=== PATIENT | male | born 1955 | race Caucasian/White ===

== ENCOUNTER → 2016-09-25 | Outpatient (CLI) | payer BC ==
--- NOTE | 2016-09-25 17:06 | CT ---
EXAMINATION TYPE: CT ChestAbdPelvis w con DATE OF EXAM: 09/25/2016 INDICATION: Patient has no complaints at time of study. Follow up study for history of lung CA. COMPARISON: 09/21/2015 CT DLP: 1126.7 mGycm CONTRAST: Performed with Oral Contrast and with IV Contrast, patient injected with 100 mL of Omnipaque 300. TECHNIQUE: Axial images at 5 mm thick sections. Reconstructed images in the coronal plane. Delayed images through the kidneys. FINDINGS: CT CHEST: Moderate size hiatal hernia is present. Portion of the thyroid visualized is normal. No suspicious lung nodules or focal infiltrates are present. No enlarged mediastinal or hilar adenopathy is evident. Surgical clips are adjacent to the aortopulmo katelynn window. Coronary artery calcification is present. The ascending aorta diameter at the level of the main pulmonary artery is 4.2 cm. The main pulmonary artery diameter at the bifurcation is 2.[address] ABDOMEN: Liver: Couple of stable punctate hypodensities are within the superior liver. Spleen: Normal Pancreas: Normal Adrenal glands: The adrenal glands are normal. Gallbladder: Gallstones at the neck of the gallbladder. Kidneys: No masses are evident. No hydronephrosis is present. No cysts are present. Delayed images were obtained through the kidneys, which remain unremarkable. Aorta: Vascular calcification is within the aorta. Inferior vena cava: Normal. CT PELVIS: Loops of bowel within the abdomen and pelvis are normal. There are loops of bowel which are incom pletely distended or lack oral contrast limiting their evaluation. Appendix: Normal as visualized. Urinary bladder: Normal. Genitourinary structures: Prostate appears slightly prominent. Osseous structures: No suspicious lytic or sclerotic lesions. IMPRESSIONS: 1. No suspicious changes for recurrent or metastatic lung cancer. #2 gallstone within the gallbladder .
== END | disposition home or self-care (01) ==
LOC: RADCTMAIN 08:10
PROVIDERS: ATTEND Internal Medicine Hematology & Oncology
DX: K80.20 Calculus of gallbladder without cholecystitis without obstruction (principal); C7A.090 Malignant carcinoid tumor of the bronchus and lung
CPT/HCPCS: 71260; 74177; 36415; Q9967

== ENCOUNTER → 2017-09-17 | Outpatient (CLI) | payer BC ==
--- NOTE | 2017-09-17 09:32 | CT ---
EXAMINATION TYPE: CT ChestAbdPelvis w con DATE OF EXAM: 09/17/2017 COMPARISON: 09/25/2016 and 09/21/2015 HISTORY: Follow up to lung CA CT DLP: 895.4 mGycm. Automated Exposure Control for Dose Reduction was Utilized. CONTRAST: CT scan of the thorax, abdomen and pelvis is performed with IV Contrast, patient injected with 100 mL of Isovue 300. FINDINGS: LUNGS: Partial lobectomy as seen on the left with mediastinal clips and pleural parenchymal scarring along the lingula and anterior segments of the left lower lobe. Focal pleural thickening appears less conspicuous than on the prior exam measuring 3.6 mm on series 4 image 30. The lungs are grossly jina r, there is no concerning parenchymal mass or nodule identified. Minimal right basilar subsegmental atelectasis is present. Medial pleural parenchymal scarring is similar to the prior within the right lower lobe. There is no pleural effusion or pneumothorax seen. The tracheobronchial tree is patent. MEDIASTINUM: Incidental note is made of a bovine aortic arch, normal variant. There are no greater th an 1 cm hilar or mediastinal lymph nodes. No pericardial effusion is seen. Ascending thoracic aort a and main pulmonary artery are within normal limits. Moderate coronary artery calcifications are aga in noted. OTHER: Moderate hiatal hernia is again noted within the lower thorax. LIVER/GB: Subcentimeter hypoattenuated lesions within the most cranial aspect of the liver are stable in comparison the prior and likely represent cysts. No new hepatic lesion is seen. No cholelithiasis . PANCREAS: No significant abnormality is seen. No ductal dilatation. SPLEEN: No significant abnormality is seen. No splenomegaly. ADRENALS: No significant abnormality is seen. No thickening or nodularity. KIDNEYS: Kidneys enhance and excrete symmetrically without focal lesion or hydronephrosis. BOWEL: No significant abnormality is seen. No bowel dilation. Few scattered sigmoid diverticula are present without pericolonic fat stranding. GENITAL ORGANS: No gross abnormality seen. LYMPH NODES: No greater than 1cm abdominal or pelvic lymph nodes are appreciated. OSSEOUS STRUCTURES: Mild multilevel degenerative changes of the spine. No suspicious osseous lesion. IMPRESSION: No evidence of metastatic disease. No new adenopathy within the chest, abdomen, or pelvis . Stable postoperative changes of the left hemithorax and less conspicuous postsurgical pleural thick ening.
== END | disposition home or self-care (01) ==
LOC: RADCTMAIN 07:18
PROVIDERS: ATTEND Internal Medicine Hematology & Oncology
DX: C7A.090 Malignant carcinoid tumor of the bronchus and lung (principal); J92.9 Pleural plaque without asbestos; Z98.890 Other specified postprocedural states
CPT/HCPCS: 71260; 74177; Q9967

== ENCOUNTER → 2018-11-25 | Outpatient (CLI) | payer MEDICARE, BC ==
--- NOTE | 2018-11-25 13:53 | CT ---
EXAMINATION TYPE: CT ChestAbdPelvis w con DATE OF EXAM: 11/25/2018 COMPARISON: 09/17/2017 HISTORY: Lung cancer follow up. CT DLP: 1014.2 mGycm Automated exposure control for dose reduction was used. CONTRAST: CT scan of the chest, abdomen and pelvis is performed with Oral Contrast and with IV Contrast, patien t injected with 100 mL of Isovue 300. FINDINGS: LUNGS: Remonstration partial lobectomy on the left with mediastinal clips and pleural and parenchymal scarring along the lingula and anterior segment of the left lower lobe previously described area of pleural thickening appears similar. The lungs are grossly clear, there is no concerning parenchymal m ass or nodule identified. There is no pleural effusion or pneumothorax seen. The tracheobronchial tree is patent. MEDIASTINUM: There are no greater than 1 cm hilar or mediastinal lymph nodes. No pericardial effusi on is seen. OTHER: Redemonstration of moderate hiatal hernia. LIVER/GB: Subcentimeter hypoattenuating lesions are stable when compared to prior and likely represen t cysts. No new hepatic lesion identified. PANCREAS: No significant abnormality is seen. SPLEEN: No significant abnormality is seen. ADRENALS: No significant abnormality is seen. KIDNEYS: No significant abnormality is seen. BOWEL: No significant abnormality is seen. REPRODUCTIVE ORGANS: No gross abnormality seen. LYMPH NODES: No greater than 1 cm abdominal or pelvic lymph nodes are appreciated. OSSEOUS STRUCTURES: Multilevel degenerative changes of the spine no suspicious osseous lesion. IMPRESSION: No evidence of recurrent or metastatic disease within the chest, abdomen and pelvis. Onelia anders postoperative changes of the left lung partial lobectomy.
== END ==
LOC: RADCTMAIN 10:02
PROVIDERS: ATTEND Internal Medicine Hematology & Oncology
DX: C7A.090 Malignant carcinoid tumor of the bronchus and lung (principal); Z98.890 Other specified postprocedural states
CPT/HCPCS: 82565; 84520; 71260; 74177; 36415; Q9967

== ENCOUNTER → 2020-02-08 | Outpatient (CLI) | payer MEDICARE, BC ==
--- NOTE | 2020-02-08 15:04 | CT ---
EXAMINATION TYPE: CT shoulder LT wo con DATE OF EXAM: 02/08/2020 COMPARISON: None HISTORY: Left shoulder pain after fall x1 week ago. CT DLP: 389.7 mGycm Automated exposure control for dose reduction was used. Helical imaging through the shoulder, reconst ructions performed in all 3 planes FINDINGS: Comminuted impacted fracture of the proximal left humerus is noted, there is no evident dislocation. Acromioclavicular joint arthropathy changes present. Left lung unremarkable as seen. There are reza ry artery calcifications. Degenerative disc changes are present in the thoracic spine. IMPRESSION: COMMINUTED LEFT PROXIMAL HUMERAL FRACTURE
== END | disposition home or self-care (01) ==
LOC: RADCTMAIN 12:06
PROVIDERS: ATTEND Orthopaedic Surgery
DX: S42.202A Unspecified fracture of upper end of left humerus, initial encounter for closed fracture (principal)

== ENCOUNTER 2022-01-26 08:46 | Emergency (ER) | payer BC, MEDICARE ==
[2022-01-26] MEDS ORDERED: HYDROmorphone 1 MG/ML 1 ML SYRINGE IM STA (09:38)
--- NOTE | 2022-01-26 09:42 | ED ---
General Adult HPI - General Chief complaint: Back Pain/Injury Stated complaint: back & hip pain Time Seen by Provider: 01/26/22 09:24 Source: patient, RN notes reviewed Mode of arrival: ambulatory Limitations: no limitations - History of Present Illness Initial comments: Patient is a pleasant 66-year-old male presenting to the emergency department with concerns with low back pain. Patient does have history of disc problem and similar back problems previously. Onset of symptoms was a couple of days ago. Patient has discomfort left lower back that does radiate towards left leg. No new weakness. No loss of sensation. No tendons retention of bowel or bladder. - Related Data Home Medications Medication Instructions Recorded Confirmed Cyanocobalamin [Vitamin B-12] 2,500 mcg PO DAILY 10/29/13 01/03/15 Sertraline HCl [Zoloft] 50 mg PO DAILY 10/29/13 01/03/15 Simvastatin [Zocor] 20 mg PO HS 10/29/13 01/03/15 Magnesium Oxide [Mag-Ox] 250 mg PO DAILY 01/02/15 01/03/15 Ranitidine HCl 150 mg PO BID 01/02/15 01/03/15 Tamsulosin [Flomax] 0.4 mg PO DAILY 01/02/15 01/03/15 Previous Rx's Medication Instructions Recorded Cyclobenzaprine [Flexeril] 10 mg PO TID PRN #12 tablet 01/26/22 predniSONE 50 mg PO DAILY #5 tab 01/26/22 Allergies Allergy/AdvReac Type Severity Reaction Status Date / Time venom-honey bee Allergy Severe Anaphylaxis Verified 01/26/22 08:47 [bee venom (honey bee)] metoprolol tartrate AdvReac Unknown Verified 01/26/22 08:47 [From Lopressor] Review of Systems ROS Statement: Those systems with pertinent positive or pertinent negative responses have been documented in the HPI. ROS Other: All systems not noted in ROS Statement are negative. Constitutional: Denies: fever Eyes: Denies: eye pain ENT: Denies: ear pain Respiratory: Denies: cough Cardiovascular: Denies: chest pain Endocrine: Denies: fatigue Gastrointestinal: Denies: abdominal pain Genitourinary: Denies: dysuria Musculoskeletal: Reports: as per HPI, back pain Skin: Denies: rash Neurological: Denies: weakness, numbness Past Medical History Past Medical History: Cancer, GERD/Reflux, Hyperlipidemia, Rheumatoid Arthritis (RA), Supraventricular Tachycardia (SVT) Additional Past Medical History / Comment(s): DX LUNG CA 09/2013. varicose veins, lung mass, psoriatic arthritis History of Any Multi-Drug Resistant Organisms: None Reported Past Surgical History: Hernia Repair Additional Past Surgical History / Comment(s): deviated septum,cysts removed LT breast,LT HAND,rt upper leg. REMOVAL GANGLION CYST RT HAND. COLONOSCOPY Past Anesthesia/Blood Transfusion Reactions: No Reported Reaction Past Psychological History: Depression Past Alcohol Use History: Occasional Past Drug Use History: None Reported - Past Family History Father Family Medical History: Cancer Mother Family Medical History: Cancer General Exam Limitations: no limitations General appearance: alert, in no apparent distress Head exam: Present: normocephalic Eye exam: Present: normal appearance Neck exam: Present: normal inspection Respiratory exam: Present: normal lung sounds bilaterally Cardiovascular Exam: Present: regular rate, normal rhythm GI/Abdominal exam: Present: soft. Absent: tenderness, pulsatile mass Extremities exam: Present: normal inspection Back exam: Present: tenderness (Minimal tenderness left lower lumbar) Neurological exam: Present: alert. Absent: motor sensory deficit Expanded Sensory exam: Lower Extremity Light Touch: Normal Motor strength exam: LLE: 5 Psychiatric exam: Present: normal affect, normal mood Skin exam: Present: normal color Course Vital Signs 01/26/22 08:47 Temperature 97.8 F Pulse Rate 93 Respiratory 16 Rate Blood Pressure 154/84 O2 Sat by Pulse 93 L Oximetry Disposition Clinical Impression: Low back pain Disposition: HOME SELF-CARE Condition: Stable Instructions (If sedation given, give patient instructions): Acute Low Back Pain (ED) Additional Instructions: Prescription sent to pharmacy. Please do follow-up with your primary care physician in the next day or 2 for recheck. Return for increased pain, weakness, loss of control of bowel or bladder, worsening symptoms or any other concerns. Prescriptions: Cyclobenzaprine [Flexeril] 10 mg PO TID PRN #12 tablet PRN Reason: Pain predniSONE 50 mg PO DAILY #5 tab Is patient prescribed a controlled substance at d/c from ED?: No Referrals: Brian Fuchs MD [Primary Care Provider] - 1-2 days Time of Disposition: 09:42
[2022-01-26 10:27] VITALS: BP 146/95; PULSE 91; RESP 19; TEMP 97.6
== END 2022-01-26 10:27 | disposition home or self-care (01) ==
LOC: EC 08:46
DX: M54.50 Low back pain, unspecified (principal); K21.9 Gastro-esophageal reflux disease without esophagitis; E78.5 Hyperlipidemia, unspecified; C80.1 Malignant (primary) neoplasm, unspecified; F32.A Depression, unspecified; Z79.899 Other long term (current) drug therapy; Z91.030 Bee allergy status; Z88.8 Allergy status to other drugs, medicaments and biological substances
CPT/HCPCS: 99283; 96372; J1170

== ENCOUNTER → 2022-12-04 | Outpatient (CLI) | payer MEDICARE ==
--- NOTE | 2022-12-04 11:23 | CA ---
Stress Echo Report Wong Boothe Age: 67 Gender: M : 1955 Exam Date: 12/04/2022 10:13 Exam Location: [facility] Ht (in): 70 Wt (lb): 200 Ordering Physician: Brian Fuchs MD Referring Physician: Jef CHAMBERLAIN Sanitary Chemist: Jacklyn Sierra RDCS Technologist Procedure CPT: Indication: R00.2 palpitations ICD-9 Codes: Rhythm: Patient History: Palpitations Cardiac Medications: Medications in past 24 hours: Contrast: Stress Results Protocol: Bar Total dose(mL): Exercise Duration (min:sec): 5:[address] Depression (mm): Angina Score: Garibay Score: METS: 7.1 Resting HR: 86 Resting BP: 139 / 89 Peak HR: 143 Peak BP: 210 / 63 Max Predicted HR: 151 95 % Max Predicted HR Target HR: 128 Double Product: 92608 Stress Summary: The patient's target heart rate was achieved BP Response: Normal Reason for Termination: MAX EXERTION/TARGET HR Cardiac Symptoms: NO SYMPTOMS ECG Analysis Resting ECG: Stress ECG: Arrhythmia: Echo Analysis Resting Echo: Peak Echo Analysis: MEASUREMENTS (Male/Female) Normal Values CONCLUSIONS Baseline heart rate 72 beats a minute, Baseline blood pressure 139/89 mmHg Baseline to EKG showed sinus mechanism normal ST segments normal TN interval narrow QRS Patient exercised on a Bar protocol for only 5 minutes 31 seconds achieving a peak heart rate of 139 beats a minute. Mildly hypertensive response to exercise 210/63 mmHg There was no ECG ms for ischemia, no arrhythmias noted There was no echocardiographic evidence for ischemia Dr. Amilcar Ritchie MD (Electronically Signed) Final Date: 04 December 2022 11:23
== END | disposition home or self-care (01) ==
LOC: RADNMMAIN 09:50
PROVIDERS: ATTEND Family Medicine
DX: R00.2 Palpitations (principal)
CPT/HCPCS: 93351

== ENCOUNTER → 2023-10-31 | Outpatient (CLI) | payer MEDICARE ==
[2023-10-31 14:44] LABS: HGB 15.8 gm/dL (13.0-17.5); MCH 29.9 pg (25.0-35.0); MCHC 32.3 g/dL (31.0-37.0); MCV 92.7 fL (80.0-100.0); Mean Platelet Volume 7.7; Platelet Count 320 k/uL (150-450); RBC 5.29 m/uL (4.30-5.90); RDW 14.4 % (11.5-15.5); WBC 6.3 k/uL (3.8-10.6)
[2023-10-31 14:57] LABS: ALT 33 U/L (4-49); AST 29 U/L (17-59); African American GFR (CKD) 79 (>60 ml/min/1.73 sqM); Albumin 4.7 g/dL (3.5-5.0); Albumin/Globulin Ratio 1.5; Alkaline Phosphatase 90 U/L (38-126); Anion Gap 5 mmol/L; Blood Urea Nitrogen 25 mg/dL (9-20); Calcium 9.8 mg/dL (8.4-10.2); Carbon Dioxide 32 mmol/L (22-30); Chloride 103 mmol/L (98-107); Globulin 3.1 g/dL; Glucose 93 mg/dL (74-99); Non-African American GFR(CKD) 68 (>60 ml/min/1.73 sqM); Potassium 4.6 mmol/L (3.5-5.1); Sodium 140 mmol/L (137-145); Total Bilirubin 0.4 mg/dL (0.2-1.3); Total Protein 7.8 g/dL (6.3-8.2)
--- NOTE | 2023-10-31 16:25 | CT ---
EXAMINATION TYPE: CT abdomen pelvis w con DATE OF EXAM: 10/31/2023 COMPARISON: 11/25/2018 HISTORY: LLQ abdominal pain. CT DLP: 1573.5 mGycm CONTRAST: CT scan of the abdomen and pelvis is performed with Oral Contrast and with IV Contrast, patient injec gosia with 100 ml mL of Isovue 300. FINDINGS: LUNG BASES-: No visible nodule. No infiltrate. Moderate fixed hiatal hernia. LIVER/GB: No calcified gallstones. 1.5 cm simple hepatic cyst left hepatic lobe. Biliary tree is of normal caliber. PANCREAS: No inflammation. No distinct mass. SPLEEN: No splenic enlargement. No lesion seen. ADRENALS: No nodule. No thickening. KIDNEYS/BLADDER: No hydronephrosis. No nephrolithiasis. No distinct renal mass. Urinary bladder g rossly unremarkable. BOWEL: Normal appendix. Normal bowel caliber. No inflammation. Moderate fecal stasis. GENITAL ORGANS: No gross abnormality. LYMPH NODES: No greater than 1cm abdominal or pelvic lymph nodes are appreciated. AORTA: No significant abnormality. OSSEOUS STRUCTURES: No significant abnormality is seen. OTHER: No significant additional abnormality is seen. IMPRESSION: 1. No acute process seen to account for the patient's symptoms.
== END | disposition home or self-care (01) ==
LOC: RADCTMAIN 14:10
PROVIDERS: ATTEND Family Medicine
DX: R10.32 Left lower quadrant pain (principal)
CPT/HCPCS: 80053; 85027; 74177; 36415; Q9967

== ENCOUNTER → 2024-04-08 | Outpatient (CLI) | payer MEDICARE ==
[2024-04-08 15:59] LABS: Basophils # (A) 0.05 X 10*3/uL (0.00-0.10); Basophils % (A) 0.9 %; Eosinophils # (A) 0.35 X 10*3/uL (0.04-0.35); Eosinophils % (A) 6.4 %; HGB 14.6 g/dL (13.0-17.0); Lymphocytes # (A) 1.04 X 10*3/uL (0.90-5.00); MCH 29.7 pg (27.0-32.0); MCHC 32.4 g/dL (32.0-37.0); MCV 91.6 FL (80.0-97.0); Monocytes # (A) 0.65 X 10*3/uL (0.20-1.00); Monocytes % (A) 11.9 %; NRBC Per 100 WBC 0 X 10*3/uL (0.00-0.01); Neutrophils # (A) 3.37 X 10*3/uL (1.80-7.70); Neutrophils % (A) 61.4 %; Platelet Count 271 X 10*3/uL (140-440); RBC 4.91 X 10*6/uL (4.40-5.60); RDW 14.2 % (11.5-14.5); WBC 5.48 X 10*3/uL (4.50-10.00)
[2024-04-08 16:12] LABS: Erythrocyte Sedimentation Rate 17 mm/Hr (0-20)
--- NOTE | 2024-04-09 18:48 | CT ---
EXAMINATION TYPE: CT knee RT wo con DATE OF EXAM: 04/08/2024 9:16 AM COMPARISON: . None CLINICAL INDICATION: Male, 68 years old with history of Z96.651 status post revision total replacemen t R knee; PHH, Post surgical total right knee TECHNIQUE: Axial images were obtained of the CT knee RT wo con, Additional coronal and sagittal refor matted images and soft tissue and bone window were obtained for review. 3-D reconstruction was create d on a separate workstation. Contrast used: mL of , (None if empty) Oral contrast used: (None if empty) CT DLP: 641.0 mGycm, Automated exposure control for dose reduction was used. FINDINGS: Post total knee arthroplasty revision changes. No periprosthetic lucency to suggest looseni ng or evidence for fracture. Hardware appears in satisfactory position. There is no evidence of fract ure, subluxation, or dislocation. No significant soft tissue swelling or joint effusion is identifie d. No focal muscular atrophy or edema is identified. Dilated tortuous vessels are seen along the medi al thigh and leg. IMPRESSION: Post total knee arthroplasty changes no evidence for loosening or evidence for periprosthetic fractur e. Dilated tortuous vessels in the medial thigh and leg correlate for varicosities and/or vascular shunt ing possibly secondary to occlusion. Clinical correlation advised. [facility], , 04/09/2024 6:45 PM
== END | disposition home or self-care (01) ==
LOC: RADCTMAIN 08:51
PROVIDERS: ATTEND Orthopaedic Surgery
DX: Z96.651 Presence of right artificial knee joint (principal)
CPT/HCPCS: 85025; 85652; 86140